=== PATIENT | female | born 1990 | race Caucasian/White ===

== ENCOUNTER 2019-08-19 20:44 | Emergency (ER) | payer MEDICAID ==
[~2019-08-19] VITALS: Ht 154.9 cm; Wt 54.5 kg
[2019-08-19 20:45] VITALS: BP 147/98
[2019-08-19 21:03] LABS: CLARITY,URINE CLEAR (Clear); COLOR,URINE STRAW (Yellow); GLUCOSE, URINE NEGATIVE (Neg); KETONES,URINE NEGATIVE (Neg); LEUKOCYTE ESTERASE ,URINE SMALL (Neg); NITRITES, URINE NEGATIVE (Neg); OCCULT BLOOD,URINE TRACE-INTACT (Neg); PROTEIN,URINE NEGATIVE (Neg); UROBILINOGEN,URINE 0.2 E.U/dL (0.2-1.0)
--- NOTE | 2019-08-19 21:04 | NUR ---
PT NOT IN ROOM, LOBBY, OR PARKING LOT.
[2019-08-19 21:10] LABS: URINE HCG NEGATIVE (NEG)
[2019-08-19 21:37] LABS: UA COLLECTION TYPE CLN CATCH MIDSTREAM
[2019-08-19 21:38] LABS: RBC,URINE 0-2 /HPF (0-2)
[2019-08-19 21:39] LABS: BACTERIA,URINE FEW /HPF (Neg); SQUAMOUS EPITHELIAL CELL,UR MODERATE /LPF (FEW); TRICHOMONAS,URINE FEW /HPF (NEGATIVE)
[2019-08-20] MEDS ORDERED: PHEN-824 PO (06:44)
[2019-08-20] MEDS ORDERED: CEPH250T PO (06:44)
== END 2019-08-19 21:49 | disposition left against medical advice (07) ==
LOC: ER 20:44
DX: N39.0 Urinary tract infection, site not specified (principal)
CPT/HCPCS: 81001; 81025; 87077; 87088; 87186; 99283

== ENCOUNTER 2019-08-20 05:59 | Emergency (ER) | payer MEDICAID ==
[~2019-08-20] VITALS: Ht 154.9 cm; Wt 53.6 kg
[2019-08-20 06:06] VITALS: BP 119/77
[2019-08-20 06:27] LABS: URINE HCG NEGATIVE (NEG)
[2019-08-20 06:37] LABS: CLARITY,URINE SLIGHTLY CLOUDY (Clear); COLOR,URINE YELLOW (Yellow); GLUCOSE, URINE NEGATIVE (Neg); KETONES,URINE NEGATIVE (Neg); LEUKOCYTE ESTERASE ,URINE TRACE (Neg); NITRITES, URINE POSITIVE (Neg); OCCULT BLOOD,URINE SMALL (Neg); PH,URINE 5.5 (4.8-8.0); PROTEIN,URINE NEGATIVE (Neg); UROBILINOGEN,URINE 0.2 E.U/dL (0.2-1.0)
[2019-08-20 06:39] LABS: UA COLLECTION TYPE CLN CATCH MIDSTREAM
[2019-08-20 06:44] LABS: BACTERIA,URINE 4+ /HPF (Neg); MUCUS STRANDS NONE SEEN /LPF (Neg); RBC,URINE 0-2 /HPF (0-2); SQUAMOUS EPITHELIAL CELL,UR FEW /LPF (FEW); WBC CLUMPS,URINE FEW /HPF (NEGATIVE)
[2019-08-20] MEDS ORDERED: CEPH250T PO (06:44)
[2019-08-20] MEDS ORDERED: PHEN-824 PO (06:44)
== END 2019-08-20 06:48 | disposition home or self-care (01) ==
LOC: ER 06:00
DX: N39.0 Urinary tract infection, site not specified (principal); Z79.899 Other long term (current) drug therapy
CPT/HCPCS: 81001; 81025; 87077; 87088; 87186; 99283

== ENCOUNTER 2020-07-12 17:54 | Emergency (ER) | payer MEDICAID ==
[~2020-07-12] VITALS: Ht 154.9 cm; Wt 52.3 kg
[~2020-07-12 17:54] MED LIST: LIDOcaine 1% W/epiNEPHrine 1:100,000 20ml vial ONE; PHEN-824 PO
[2020-07-12 17:59] VITALS: BP 143/100
[2020-07-12] MEDS ORDERED: LIDOcaine 1% W/epiNEPHrine 1:200,000 10ml vial IJ ONE (19:15)
[2020-07-12] MEDS ORDERED: TETanus/Pertussis (Acell)/Diphther VAC/PF (Tdap-Adult) 0.5ml syringe IMVAC ONE (19:15)
[2020-07-12] MEDS ORDERED: LIDOcaine 1% 30ml preserv. free vial IJ ONE (19:15)
[2020-07-12] MEDS ORDERED: CEPH250T PO (19:33)
[2020-07-12] MEDS ORDERED: SULF1TAB45 PO (19:33)
== END 2020-07-12 20:30 | disposition home or self-care (01) ==
LOC: ER 17:55
DX: L03.011 Cellulitis of right finger (principal); Z79.2 Long term (current) use of antibiotics; Z79.899 Other long term (current) drug therapy
CPT/HCPCS: 10060; 90471; 90715; 99283

== ENCOUNTER 2025-05-22 23:23 | Emergency (ER) | payer MEDICAID ==
[~2025-05-22 23:23] MED LIST changes: -LIDOcaine 1% W/epiNEPHrine 1:100,000 20ml vial ONE
== END 2025-05-23 00:06 | disposition left against medical advice (07) ==
LOC: ER 23:24
DX: N89.8 Other specified noninflammatory disorders of vagina (principal); Z53.21 Procedure and treatment not carried out due to patient leaving prior to being seen by health care provider